=== PATIENT | male | born 1990 | race Caucasian/White ===

== ENCOUNTER 2019-07-31 02:25 | Emergency (ER) | payer OTHER ==
[~2019-07-31] VITALS: Ht 177.8 cm; Wt 99.8 kg
--- NOTE | 2019-07-31 02:45 | NUR ---
PT [facility] [employer] [facility]. PT IS C/O BACK AND NECK PAIN. PT AMBULATED TO ER #1 WITH A STEADY GAIT. DR KERN IS AT THE BEDSIDE
[2019-07-31 04:43] VITALS: BP 138/75
== END 2019-07-31 04:42 | disposition home or self-care (01) ==
LOC: ER 02:27
DX: S20.229A Contusion of unspecified back wall of thorax, initial encounter (principal); G89.29 Other chronic pain; W18.09XA Striking against other object with subsequent fall, initial encounter; Y93.89 Activity, other specified; Y92.89 Other specified places as the place of occurrence of the external cause; Y99.8 Other external cause status
CPT/HCPCS: 72070-TC